=== PATIENT | female | born 1985 | race Caucasian/White ===

== ENCOUNTER 2017-12-17 12:40 | Outpatient (CLI) | payer BC ==
--- NOTE | 2017-12-17 15:24 | CT ---
CT PELVIS WITHOUT CONTRAST: Technique: Multiple axial tomograms were obtained through the pelvis without IV enhancement. Indications: Benign neoplasm of pelvis. Comparison: MRI lumbar spine performed at [facility], 11-21-17. That exam revealed an enhancing mass in the left sacrum at S3 which does extend into the left S3 foramina. On today's exam, a soft tissue mass at sacrum and S3 level is again seen on CT. There is no evidence of bony destruction. The bone is well corticated surrounding this mass. This mass does extend into th e left foramina of S3. No osseous abnormality. The uterus is prominent in size. An IUD is noted in the endometrial cavity. No soft tissue abnormalit y is identified. IMPRESSION: 3 cm mass at the S3 vertebra to the left of midline is again seen. There is no evidence of bony destr uction. This mass does partially extend into the left S3 foramina. 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 POS: [facility]
== END 2017-12-17 12:41 | disposition home or self-care (01) ==
LOC: TBSIIMAG 12:40
PROVIDERS: ATTEND Neurological Surgery
DX: D49.2 Neoplasm of unspecified behavior of bone, soft tissue, and skin (principal); M48.9 Spondylopathy, unspecified
CPT/HCPCS: 72192